=== PATIENT | male | born 1980 | race Caucasian/White ===

== ENCOUNTER 2016-10-23 19:14 | Emergency (ER) | payer SELFPAY ==
--- NOTE | 2016-10-23 19:29 | NUR ---
LEFT IN THE MIDDLE OF TRIAGE AFTER REALIZING BP OF 138/89; HR 98 WAS OK. STATES "I WAS JUST WORRIED BUT NOW I CAN GO HOME".
== END 2016-10-23 19:30 | disposition left against medical advice (07) ==
LOC: ER 19:18
DX: Z53.21 Procedure and treatment not carried out due to patient leaving prior to being seen by health care provider (principal)